=== PATIENT | female | born 1985 | race Caucasian/White ===

== ENCOUNTER 2016-07-06 13:56 | Emergency (ER) | payer BC, OTHER ==
[~2016-07-06] VITALS: Ht 165.1 cm; Wt 81.8 kg
[~2016-07-06 13:56] MED LIST: AMOX875T2 PO; BUDE8.435 NS; ESOM20CA PO; LUBI8CAP4 PO; MTP50T PO; SERT50TA9 PO
[2016-07-06] MEDS ORDERED: KETOROLAC 60 MG/2 ML (TORADOL) VIAL IM ONE (14:10)
--- NOTE | 2016-07-06 14:35 | Diagnostic Imaging Report ---
INDICATION: Right knee pain 3 views of the right knee shows no fracture, dislocation or other abnormality. IMPRESSION: Normal right knee. Dictated by: Dictated on workstation # [id number]
[2016-07-06] MEDS ORDERED: TRM50T PO (14:51)
[2016-07-06] MEDS ORDERED: PRM25T PO (14:51)
[2016-07-06 14:55] VITALS: BP 143/90
== END 2016-07-06 15:01 | disposition home or self-care (01) ==
LOC: ED 13:59
DX: S83.421A Sprain of lateral collateral ligament of right knee, initial encounter (principal); X50.0XXA Overexertion from strenuous movement or load, initial encounter; Y93.H2 Activity, gardening and landscaping; Y92.008 Other place in unspecified non-institutional (private) residence as the place of occurrence of the external cause; Y99.8 Other external cause status
CPT/HCPCS: 73562; 96372; 99283; J1885